=== PATIENT | female | born 1995 | race Two or more races ===

== ENCOUNTER 2020-05-26 15:22 | Outpatient (CLI) | payer OTHER ==
[~2020-05-26] VITALS: Ht 165.1 cm; Wt 74.8 kg
[2020-05-26] MEDS ORDERED: CIPRO500 MG/5 M (15:27)
[2020-05-26] MEDS ORDERED: CIPRODEX OTIC7.5 ML (15:28)
[2020-05-26] MEDS ORDERED: CLOTRIMAZOLE30 ML OTIC (15:45)
== END 2020-05-26 16:00 | disposition home or self-care (01) ==
LOC: OFIC 805 15:22
PROVIDERS: ATTEND Otolaryngology Otology & Neurotology
DX: H60.8X1 Other otitis externa, right ear (principal); H92.01 Otalgia, right ear; H61.21 Impacted cerumen, right ear

== ENCOUNTER 2020-06-09 09:38 | Outpatient (CLI) | payer OTHER ==
[~2020-06-09 09:38] MED LIST: CIPRO500 MG/5 M; CIPRODEX OTIC7.5 ML; CLOTRIMAZOLE30 ML OTIC
== END 2020-06-09 16:31 | disposition home or self-care (01) ==
LOC: OFIC 805 09:38
PROVIDERS: ATTEND Otolaryngology Otology & Neurotology
DX: H60.8X1 Other otitis externa, right ear (principal); H92.01 Otalgia, right ear